=== PATIENT | male | born 1945 | race Caucasian/White ===

== ENCOUNTER 2024-03-19 08:28 | Outpatient (AMB) | payer MEDICARE, SELFPAY ==
--- NOTE | 2024-03-19 08:39 | A.OFFVIS_ITS ---
Vital Signs 03/19/24 08:40 Height 5 ft 5 in Weight 150 lb 8 oz BMI 25.0 BP 134/72 Blood Pressure Location Lt brachial Position Sitting Pulse 63 Pulse Source Pulse Oximeter Pulse Oximetry (%) 97 Oxygen Delivery Method Room Air Intake Visit Reasons: OA /cortizone injection Intake Note: Patient presents for cortisone injection in right hand. Allergies No Known Allergies Allergy (Verified 03/19/24 08:41) HPI HPI OA /cortizone injection: Details: He received cortisone injection for right carpal tunnel syndrome from Dr. Curran [facility] months ago with benefit. Been experiencing burning pain at night that wakes him up from sleep. It is affecting his right 1st to 3rd fingers. He is also experiencing left CMC pain. Hard to hold objects. [facility] Surgical History H/O vasectomy H/O knee surgery Review of Systems Const All systems reviewed & are unremarkable except as noted in HPI and below Physical Exam Vital Signs: Last Vital Signs Pulse 63 03/19/24 08:40 BP 134/72 03/19/24 08:40 Pulse Ox 97 03/19/24 08:40 Oxygen Delivery Method Room Air 03/19/24 08:40 BMI result Body Mass Index 25.0 Const Other: General: Comfortable Skin: Bruising on hands MSK: Heberden nodes present with subluxation of right 2nd DIPJ. He is able to internal grinder hand. Squaring of bilateral CMCs with pain on palpation. No synovitis. Office Procedures AMB Joint Injection/Aspiration Joint Injection/Aspiration Details: Left CMC joint Prep: site was prepped using aseptic technique Injected: 10 mg of, Kenalog, with 0.25 mL of and 1% plain lidocaine Procedure: The patient tolerated the procedure well. Postprocedure protocol was discussed with patient. Coding - Small Joint Procedure code (CPT) selection complete AMB Joint Injection/Aspiration Joint Injection/Aspiration Details: Right carpal tunnel Prep: site was prepped using aseptic technique Injected: 20 mg of, Kenalog, with 0.5 mL of and 1% plain lidocaine Procedure: The patient tolerated the procedure well. Postprocedure protocol was discussed with patient. Coding Additional procedure code (CPT) needed (CPT 14479) Office Meds lidocaine (PF) 10 mg/mL (1 %) injection solution Performing Provider: Jacobo Carrion MD Performing Location: [facility] [place] [facility] Administered by: Jacobo Carrion MD on 03/19/24 09:12 Dose Route Admin Location Dispensed Lot Number Expiration Date [facility] Hr Recruiter 2.5 mg Infiltration 2 mL [id number] [employer] Kenalog 40 mg/mL suspension for injection Performing Provider: Jacobo Carrion MD Performing Location: [facility] [place] [facility] Administered by: Jacobo Carrion MD on 03/19/24 09:12 Dose Route Admin Location Dispensed Lot Number Expiration Date [facility] Hr Recruiter 10 mg intra-articular 1 mL AP [id number] [employer] lidocaine (PF) 10 mg/mL (1 %) injection solution Performing Provider: Jacobo Carrion MD Performing Location: [facility] [place] [facility] Administered by: Jacobo Carrion MD on 03/19/24 09:14 Dose Route Admin Location Dispensed Lot Number Expiration Date [facility] Hr Recruiter 5 mg Infiltration 2 mL [id number] [employer] Kenalog 40 mg/mL suspension for injection Performing Provider: Jacobo Carrion MD Performing Location: [facility] [place] [facility] Administered by: Jacobo Carrion MD on 03/19/24 09:14 Dose Route Admin Location Dispensed Lot Number Expiration Date [facility] Hr Recruiter 20 mg Tendon Sheath Inj. 1 mL AP [id number] [employer] Assessment & Plan Assessment & Plan (1) Osteoarthritis, hand: Comment: Pain from left CMC osteoarthritis is greater than right. He has had worsening subluxation of right 2nd DIPJ but at this time pain is controlled. Code(s): M19.049 - Primary osteoarthritis, unspecified hand Category: Medical Qualifiers: Osteoarthritis type: primary Laterality: bilateral Qualified Code(s): M19.041 - Primary osteoarthritis, right hand; M19.042 - Primary osteoarthritis, left hand Plan: Patient received cortisone injection to left CMC. Return to clinic in 3 months or sooner if needed for left DIPJ/right CMC cortisone injection He is being prescribed diclofenac p.o. from pain management. I recommend that PCP checked creatinine and LFTs at least twice a year for drug monitoring on chronic NSAID. (2) Carpal tunnel syndrome, right: Comment: Recurrent. Code(s): G56.01 - Carpal tunnel syndrome, right upper limb Category: Medical Plan: Patient received cortisone injection to right carpal tunnel this visit Return to clinic in 3 months (3) Osteoarthritis of carpometacarpal joint of left thumb: Code(s): M18.12 - Unilateral primary osteoarthritis of first carpometacarpal joint, left hand Category: Medical Qualifiers: Osteoarthritis type: primary Qualified Code(s): M18.12 - Unilateral primary osteoarthritis of first carpometacarpal joint, left hand Plan: See above Orders: Orders OT Evaluation and Treatment Today G56.01 - Carpal tunnel syndrome, right upper limb, M19.049 - Primary osteoarthritis, unspecified hand AMB Joint Injection/Aspiration Today M18.12 - Unilateral primary osteoarthritis of first carpometacarpal joint, left hand AMB Joint Injection/Aspiration Today G56.01 - Carpal tunnel syndrome, right upper limb Medications: New Kenalog (triamcinolone acetonide) 20 mg (0.5 mL) Tendon Sheath Inj. ONCE 0.5 mL 0RF NS G56.01 - Carpal tunnel syndrome, right upper limb lidocaine (PF) 5 mg (0.5 mL) Infiltration ONCE 0.5 mL 0RF G56.01 - Carpal tunnel syndrome, right upper limb Coding Level of Care Code Est Pt Level 4 (17398) Complex EM visit Add On G2211 Diagnoses Primary osteoarthritis of both hands M19.041; M19.042 Osteoarthritis type: primary Laterality: bilateral Carpal tunnel syndrome, right G56.01 Primary osteoarthritis of first carpometacarpal joint of left hand M18.12 Osteoarthritis type: primary CPT Codes Coding - - Small joint: 92351 - Small Joint ([id number])
[2024-03-19 08:40] VITALS: BP 134/72; PULSE 63; O2SAT 97; BMI 25.0
== END 2024-03-19 09:10 | disposition home or self-care (01) ==
PROVIDERS: PCP Family Medicine; Visit Provider Internal Medicine Rheumatology
DX: M19.041 Primary osteoarthritis, right hand (principal); M19.042 Primary osteoarthritis, left hand; G56.01 Carpal tunnel syndrome, right upper limb; M18.12 Unilateral primary osteoarthritis of first carpometacarpal joint, left hand
CPT/HCPCS: 20526; 20600; 99213

== ENCOUNTER → 2024-03-19 08:28 | Outpatient (BNVA) | payer MEDICARE, SELFPAY | PROVIDERS: PCP Family Medicine; Visit Provider Internal Medicine Rheumatology | DX: G56.01 Carpal tunnel syndrome, right upper limb (principal); M18.12 Unilateral primary osteoarthritis of first carpometacarpal joint, left hand; M19.041 Primary osteoarthritis, right hand; M19.042 Primary osteoarthritis, left hand | CPT/HCPCS: 20526; 20600; 99212; J2003; J3300 ==

== ENCOUNTER 2024-08-13 10:09 | Outpatient (AMB) | payer MEDICARE, SELFPAY ==
--- NOTE | 2024-08-13 10:12 | MHC.OFFVIS ---
Vital Signs 08/13/24 10:20 Height 5 ft 5 in Weight 152 lb 6 oz BMI 25.4 BP 120/70 Blood Pressure Location Lt brachial Position Sitting Pulse 70 Pulse Source Pulse Oximeter Pulse Oximetry (%) 96 Oxygen Delivery Method Room Air Intake Visit Reasons: Follow up 3mo Intake Note: Patient presents for 3 months follow up. Allergies No Known Allergies Allergy (Verified 08/13/24 10:20) HPI HPI Follow up 3mo: Details: He continues to experience pain in bilateral wrists and right 2nd finger. [facility] Surgical History H/O vasectomy H/O knee surgery Physical Exam Vital Signs: Last Vital Signs Pulse 70 08/13/24 10:20 BP 120/70 08/13/24 10:20 Pulse Ox 96 08/13/24 10:20 Oxygen Delivery Method Room Air 08/13/24 10:20 BMI result Body Mass Index 25.4 Const Other: General: Comfortable Skin: Bruising on hands MSK: Heberden nodes present with subluxation of right 2nd DIPJ. Tender right 2nd PIP. 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 Squaring of bilateral CMCs with pain on palpation. No synovitis. Office Procedures AMB Joint Injection/Aspiration Joint Injection/Aspiration Details: Bilateral CMC joint Prep: site was prepped using aseptic technique Injected into each site: 10 mg of, Kenalog, with 0.25 mL of and 1% plain lidocaine Procedure: Informed verbal consent was obtained. The patient tolerated the procedure well. Postprocedure protocol was discussed with patient. Procedure: The patient tolerated the procedure well Coding - Small Joint Procedure code (CPT) selection complete AMB Joint Injection/Aspiration Coding - Small Joint Procedure code (CPT) selection complete AMB Joint Injection/Aspiration Joint Injection/Aspiration Details: Right 2nd DIPJ Prep: site was prepped using aseptic technique Injected: 10 mg of, Kenalog, with 0.25 mL of and 1% plain lidocaine Procedure: Informed verbal consent was obtained. The patient tolerated the procedure well. Postprocedure protocol was discussed with patient. Coding - Small Joint Procedure code (CPT) selection complete Office Meds lidocaine (PF) 10 mg/mL (1 %) injection solution Performing Provider: Jacobo Carrion MD Per[place] [facility] [place] [facility] Administered by: Jossue Coto RN on 08/13/24 10:30 Dose Route Admin Location Dispensed Lot Number Expiration Date NDC Rate Analyst 2.5 mg Infiltration 2 mL [id number] 07/25/26 17340-852-64 [employer] Total Dispensed Waste 2 mL 87.5 % Kenalog 40 mg/mL suspension for injection Performing Provider: Jacobo Carrion MD Performing Location: [facility] [place] [facility] Administered by: Jossue Coto RN on 08/13/24 10:30 Dose Route Admin Location Dispensed Lot Number Expiration Date NDC Rate Analyst 10 mg intra-articular 1 mL [id number] 09/24/26 85120-458-66 [employer] Total Dispensed Waste 1 mL 75 % lidocaine (PF) 10 mg/mL (1 %) injection solution Performing Provider: Jacobo Carrion MD Performing Location: [facility] [place] [facility] Administered by: Jossue Coto RN on 08/13/24 10:30 Dose Route Admin Location Dispensed Lot Number Expiration Date NDC Rate Analyst 2.5 mg Infiltration 2 mL [id number] 07/25/26 13781-062-92 [employer] Total Dispensed Waste 2 mL 87.5 % Kenalog 40 mg/mL suspension for injection Performing Provider: Jacobo Carrion MD Performing Location: [facility] [place] [facility] Administered by: Jossue Coto RN on 08/13/24 10:30 Dose Route Admin Location Dispensed Lot Number Expiration Date NDC Rate Analyst 10 mg intra-articular 1 mL [id number] 09/24/26 49408-091-89 [employer] Total Dispensed Waste 1 mL 75 % lidocaine (PF) 10 mg/mL (1 %) injection solution Performing Provider: Jacobo Carrion MD Performing Location: [facility] [place] [facility] Administered by: Jossue Coto RN on 08/13/24 10:30 Dose Route Admin Location Dispensed Lot Number Expiration Date NDC Rate Analyst 2.5 mg Infiltration 2 mL [id number] 07/25/26 33003-240-81 [employer] Total Dispensed Waste 2 mL 87.5 % Kenalog 40 mg/mL suspension for injection Performing Provider: Jacobo Carrion MD Performing Location: [facility] [place] [facility] Administered by: Jossue Coto RN on 08/13/24 10:30 Dose Route Admin Location Dispensed Lot Number Expiration Date [facility] Rate Analyst 10 mg intra-articular 1 mL [id number] 77651-442-45 [facility] Total Dispensed Waste 1 mL 75 % Assessment & Plan Assessment & Plan (1) Osteoarthritis, hand: Comment: Bilateral CMC and right 2nd DIPJ pain is uncontrolled. Code(s): M19.049 - Primary osteoarthritis, unspecified hand Category: Medical Qualifiers: Laterality: bilateral Osteoarthritis type: primary Qualified Code(s): M19.041 - Primary osteoarthritis, right hand; M19.042 - Primary osteoarthritis, left hand Plan: Patient received cortisone injection to bilateral CMCs and right 2nd DIPJ Return to clinic in 3 months (2) Carpal tunnel syndrome, right: Comment: Recurrent. Controlled at this time. Code(s): G56.01 - Carpal tunnel syndrome, right upper limb Category: Medical Plan: Return to clinic in 3 months (3) Osteoarthritis of carpometacarpal joint of left thumb: Code(s): M18.12 - Unilateral primary osteoarthritis of first carpometacarpal joint, left hand Category: Medical Qualifiers: Osteoarthritis type: primary Qualified Code(s): M18.12 - Unilateral primary osteoarthritis of first carpometacarpal joint, left hand Plan: See above Orders: Orders AMB Joint Injection/Aspiration Today M19.041 - Primary osteoarthritis, right hand, M19.042 - Primary osteoarthritis, left hand AMB Joint Injection/Aspiration Today M19.041 - Primary osteoarthritis, right hand, M19.042 - Primary osteoarthritis, left hand AMB Joint Injection/Aspiration Today M19.041 - Primary osteoarthritis, right hand, M19.042 - Primary osteoarthritis, left hand Coding Level of Care Code Est Pt Level 3 (99935) Complex EM visit Add On G2211 Diagnoses Primary osteoarthritis of both hands M19.041; M19.042 Laterality: bilateral Osteoarthritis type: primary Carpal tunnel syndrome, right G56.01 Primary osteoarthritis of first carpometacarpal joint of left hand M18.12 Osteoarthritis type: primary CPT Codes Coding - 09820 - Small joint: 61548 - Small Joint ([id number]) Coding - 11081 - Small joint: 51062 - Small Joint ([id number]) Coding - 90778 - Small joint: 53301 - Small Joint ([id number])
[2024-08-13 10:20] VITALS: BP 120/70; PULSE 70; O2SAT 96; BMI 25.4
== END 2024-08-13 10:41 | disposition home or self-care (01) ==
PROVIDERS: PCP Family Medicine; Visit Provider Internal Medicine Rheumatology
DX: M19.041 Primary osteoarthritis, right hand (principal); M19.042 Primary osteoarthritis, left hand; G56.01 Carpal tunnel syndrome, right upper limb; M18.0 Bilateral primary osteoarthritis of first carpometacarpal joints
CPT/HCPCS: 20600; 99213

== ENCOUNTER → 2024-08-13 10:09 | Outpatient (BNVA) | payer MEDICARE, SELFPAY | PROVIDERS: PCP Family Medicine; Visit Provider Internal Medicine Rheumatology | DX: M19.042 Primary osteoarthritis, left hand (principal); M18.12 Unilateral primary osteoarthritis of first carpometacarpal joint, left hand; G56.01 Carpal tunnel syndrome, right upper limb | CPT/HCPCS: 20600; 99212; J2003; J3300 ==

== ENCOUNTER 2024-11-18 12:33 | Outpatient (AMB) | payer MEDICARE, SELFPAY ==
--- NOTE | 2024-11-18 12:37 | MHC.OFFVIS ---
Vital Signs 11/18/24 12:38 Height 5 ft 5 in Weight 154 lb 15.759 oz BMI 25.8 BP 100/80 Blood Pressure Location Lt brachial Pulse 59 Pulse Source Pulse Oximeter Pulse Oximetry (%) 97 Oxygen Delivery Method Room Air Intake Visit Reasons: 3 months Intake Note: Patient presents for cortisone injection in right hand. Accompanied by: Self / Same As Patient Allergies No Known Allergies Allergy (Verified 11/18/24 12:39) HPI HPI 3 months: Details: R 3 fingers are numb. Pain is shooting up wrist. Initially starts with numbness then becomes painful. A month ago pain started. Using brace at night and diclofenac gel. He is experiencing right CMC pain. [facility] Surgical History H/O vasectomy H/O knee surgery Physical Exam Vital Signs: Last Vital Signs Pulse 59 11/18/24 12:38 BP 100/80 11/18/24 12:38 Pulse Ox 97 11/18/24 12:38 Oxygen Delivery Method Room Air 11/18/24 12:38 BMI result Body Mass Index 25.8 Const Other: General: Comfortable Skin: Bruising on hands MSK: Heberden nodes present with subluxation of right 2nd DIPJ. Tender right CMC. 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 Squaring of bilateral CMCs with pain on palpation. No synovitis. Office Procedures AMB Joint Injection/Aspiration Joint Injection/Aspiration Details: Right CMC Prep: site was prepped using aseptic technique Injected: 10 mg of, Kenalog, with 0.25 mL of and 1% plain lidocaine Procedure: Informed verbal consent was obtained. The patient tolerated the procedure well. Postprocedure protocol was discussed with patient. Coding - Small Joint Procedure code (CPT) selection complete AMB Joint Injection/Aspiration Joint Injection/Aspiration Details: Right carpal tunnel Prep: site was prepped using aseptic technique Injected: 20 mg of, Kenalog, with 0.5 mL of and 1% plain lidocaine Procedure: Informed verbal consent was obtained. The patient tolerated the procedure well. Postprocedure protocol was discussed with patient. Coding Additional procedure code (CPT) needed (CPT code 50041 carpal tunnel) Office Meds lidocaine (PF) 10 mg/mL (1 %) injection solution Performing Provider: Jacobo Carrion MD Performing Location: [facility] [place] [facility] Administered by: Jossue Coto RN on 11/18/24 13:11 Dose Route Admin Location Dispensed Lot Number Expiration Date NDC Chainstitch Tunnel Elastic Operator 0.25 mL Infiltration 2 mL [id number] 05/25/26 71979-322-06 [employer] Total Dispensed Waste 2 mL 87.5 % Kenalog 40 mg/mL suspension for injection Performing Provider: Jacobo Carrion MD Performing Location: [facility] [place] [facility] Administered by: Jossue Coto RN on 11/18/24 13:11 Dose Route Admin Location Dispensed Lot Number Expiration Date ND Chainstitch Tunnel Elastic Operator 10 mg intra-articular 1 mL [id number] 06/24/25 [address]-3 [employer] Total Dispensed Waste 1 mL 75 % lidocaine (PF) 10 mg/mL (1 %) injection solution Performing Provider: Jacobo Carrion MD Performing Location: [facility] [place] [facility] Administered by: Jossue Coto RN on 11/18/24 13:11 Dose Route Admin Location Dispensed Lot Number Expiration Date NDC Chainstitch Tunnel Elastic Operator 0.5 mL Infiltration 2 mL [id number] 05/25/26 01053-970-30 [employer] Total Dispensed Waste 2 mL 75 % Kenalog 40 mg/mL suspension for injection Performing Provider: Jacobo Carrion MD Performing Location: [facility] [place] [facility] Administered by: Jossue Coto RN on 11/18/24 13:11 Dose Route Admin Location Dispensed Lot Number Expiration Date ND Chainstitch Tunnel Elastic Operator 40 mg intra-articular 1 mL [id number] 06/24/25 [address]-9 [employer] Total Dispensed Waste 1 mL 0 % Assessment & Plan Assessment & Plan (1) Carpal tunnel syndrome, right: Comment: Recurrent. Pain is uncontrolled. He had evaluation for surgery at the [facility] but prefers to defer surgery at this time due to him requiring left shoulder and back surgery when he is able. Code(s): G56.01 - Carpal tunnel syndrome, right upper limb Category: Medical Plan: Patient received cortisone injection to treat carpal tunnel syndrome Wear wrist brace at night Return to clinic in 3 months (2) Osteoarthritis, hand: Comment: R CMC pain is uncontrolled Code(s): M19.049 - Primary osteoarthritis, unspecified hand Category: Medical Qualifiers: Laterality: bilateral Osteoarthritis type: primary Qualified Code(s): M19.041 - Primary osteoarthritis, right hand; M19.042 - Primary osteoarthritis, left hand Plan: Patient received right CMC cortisone injection Return to clinic in 3 months Orders: Orders AMB Joint Injection/Aspiration Today M19.041 - Primary osteoarthritis, right hand, M19.042 - Primary osteoarthritis, left hand AMB Joint Injection/Aspiration Today M18.12 - Unilateral primary osteoarthritis of first carpometacarpal joint, left hand Coding Level of Care Code Est Pt Level 3 (45165) Complex EM visit Add On G2211 Diagnoses Carpal tunnel syndrome, right G56.01 Primary osteoarthritis of both hands M19.041; M19.042 Laterality: bilateral Osteoarthritis type: primary CPT Codes Coding - - Small joint: - Small Joint ([id number])
[2024-11-18 12:38] VITALS: BP 100/80; PULSE 59; O2SAT 97; BMI 25.8
--- OUTSIDE RECORDS SUMMARY | 2024-11-18 15:06 | XMS_ITS | Encounter Summary ---
Author Organization [facility] Address [address] [place] [address] Phone Care Team Providers Care Stamp Analyst Name Role Phone Melita Michael MD Primary Care Provider [phone] Encounter Details Date Type Department Care Team (Late Contact Info) Description 06/02/2021 Procedure Pass OR Admitting Dept - Virtual Department [address] [place] [address] Social History Tobacco Use Types Packs/Day Years Used Date Smoking Tobacco: Former Smokeless Tobacco: Never Comments:quit 40 years ago Alcohol Use Standard Drinks/Week Comments No 0 (1 standard drink = 0.6 oz pur e alcohol) Sex and Gender Information Value Date Recorded Sex Assigned at Male 06/18/2024 12:28 PM EDT Legal Sex Male 10:08 PM EDT Gender Identity Male 06/18/2024 12:28 PM EDT Sexual Orientation Not on file documented as of this encounter Plan of Treatment Upcoming Encounters Date Type Department Care Team (Late Contact Info) Description 11/25/2024 2:30 PM EDT Office Visit [facility], All[facility] Critical Care Medicine [address] [facility] [place] [address] Lowell Webb MD [address] [place] [phone] 12/08/2024 4:15 PM EDT Appointment [facility] [address] [place] [address] Lowell Webb MD [address] [place] [phone] 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 It is not the complete legal health record.[facility]
--- OUTSIDE RECORDS SUMMARY | 2024-11-18 15:06 | XMS_ITS | Encounter Summary ---
Author Organization [facility] Address [address] [place] [phone] Phone Care Team Providers Care Railroad Accountant Name Role Phone Melita Michael MD Primary Care Provider [phone] Encounter Details Date Type Department Care Team (Late st Contact Info) Description 02/08/2023 Procedure Pass [facility], Ct Scan - [address] [place] [address] [address] Social History Tobacco Use Types Packs/Day Years Used Date Smoking Tobacco: Former Cigarettes Q uit: 1973 Smokeless Tobacco: Never Comments:quit 40 years ago Alcohol Use Standard Drinks/Week Comments No 0 (1 standard drink = 0.6 oz pur e alcohol) Education Answer Date Recorded Are you interested in more education? Not on wali e 06/22/2022 Are you concerned about learning? Not on file 06/22/2022 No 06/22/2022 No 06/22/2022 Digital Access Answer Date Recorded No 07/21/2022 No 07/21/2022 Reliable internet access at home? Not on file 07/21/2022 Device with a working camera? Not on file Intimate Partner Violence Answer Date R ecorded Are you denied basic needs s uch as food, clothing, or medical care? No 05/08/2022 In the past 12 months have y ou been in a relationship with a person who hurts, threatens, or tries to control you? No 05/08/2022 Are you denied basic needs s uch as food, clothing, or medical care? No 05/08/2022 In the past 12 months have y ou been in a relationship with a person who hurts, threatens, or tries to control you? No 05/08/2022 Sex and Gender Information Value Date Recorded Sex Assigned at Male 06/18/2024 12:28 PM EDT Legal Sex Male 10:08 PM EDT Gender Identity Male 06/18/2024 12:28 PM EDT Sexual Orientation Not on file documented as of this encounter Plan of Treatment Upcoming Encounters Date Type Department Care Team (Late st Contact Info) Description 11/25/2024 2:30 PM EDT Office Visit [facility], Allergy and Critical Care Medicine [address] [place] [address] Lowell Webb MD [address] [place] [phone] 12/08/2024 4:15 PM EDT Appointment [facility] [address] [place] [address] Lowell Webb MD [address] [place] [phone] documented as of this encounter Visit Diagnoses Not on filedocumented in this encounter Care Teams Railroad Accountant Relationship Specialty Start Date End Date Melita Michael MD [address] [place] [address] [place] [phone] PCP - General Family Medicine 01/28/22 documented as of this encounter Additional Source Comments The information contained in this document represents components of the legal health record. It is not the complete legal health record.[facility]
--- OUTSIDE RECORDS SUMMARY | 2024-11-18 15:06 | XMS_ITS | Encounter Summary ---
Author Organization [facility] Address [address] [place] [address] [place] [address] Phone Care Team Providers Care Sales Broker Name Role Phone Melita Michael MD Primary Care Provider [phone] Encounter Details Date Type Department Care Team ([facility] Contact Info) Description 01/16/2022 Transcribe Orders Virtual Department [address] [place] [address] Melita Michael MD [address] [place] [address] [email or web address] Other form of dyspnea Social History Tobacco Use Types Packs/Day Years [...] Upcoming Encounters Date Type Department Care Team ([facility] Contact Info) Description 11/25/2024 2:30 PM EDT Office Visit [facility] Pulmonary, Allergy and Critical Care Medicine 10 [place] [address] Lowell Webb MD 10 [facility] 2nd [place] [address] 12/08/2024 4:15 PM EDT Appointment [facility] 30 [place] [address] Lowell Webb MD [address] [place] [address] [email or web address] documented as of this encounter Visit Diagnoses Diagnosis Other form of dyspnea documented in this encounter Additional Health Concerns Infection Onset Date 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 It is not the complete legal health record.[facility]
--- OUTSIDE RECORDS SUMMARY | 2024-11-18 15:06 | XMS_ITS | Encounter Summary ---
Author Organization [facility] Address [address] [place] [address] Phone Care Team Providers Care Toll Settlement Clerk Name Role Phone Melita Michael MD Primary Care Provider [phone] Reason for Referral * MRI/CAT Scan - Closed Specialty Diagnoses / Procedures Referred By Teddy cervantes Referred To Contact Radiology Diagnoses Dyspnea, unspecified type Procedures CT Chest Melita Michael MD Phone: tel: fax: [email or web address] Referral ID Status Reason Start Date Expiration Date Visits Re quested Visits Authorized [id number] Closed 02/01/2022 02/01/2023 1 1 Encounter Details Date Type Department Care Team (Late st Contact Info) Description 02/01/2022 Transcribe Orders Virtual Department 30 [place] [address] Melita Michael MD [address] [place] [address] [email or web address] Dyspnea, unspecified type (Primary Dx) Social History Tobacco Use Types Packs/Day Years [...] Pulmonary, Allergy and Critical Care Medicine 10 [place] [address] Lowell Webb MD [address] [place] [address] 12/08/2024 4:15 PM EDT Appointment [facility] 30 [place] [address] Lowell Webb MD [address] [place] [phone] documented as of this encounter Results * CT CHEST (HIGH RESOLUTION) WITHOUT CONTRAST (02/15/2022 11:48 AM EST) Anatomical Region Laterality Modality Chest Computed Tomogra phy 02/15/2022 1:13 PM EST Impressions 02/15/2022 1:19 PM EST -Mild basal/predominant subpleural reticulation with early traction bronchiectasis and no honeycombing. 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 -Mild splenomegaly. Narrative 02/15/2022 1:[address] CHEST (HIGH RESOLUTION) WITHOUT CONTRAST TECHNIQUE: Multidetector CT of the chest was performed without intravenous contrast using tailored dose modulation techniques. Thin inspiratory, expiratory and inspiratory prone images were obtained as part of a high-resolution chest CT protocol. COMPARISON: None FINDINGS: Devices/Tubes/Lines: None. Lungs: Central airways are patent. Mild scattered subpleural reticulation with slight basal predominance. There is early traction bronchiectasis in both lower lobes. No honeycombing. There is evidence of air-trapping in the inferior left lower lobe, though this is not seen to a significant degree elsewhere, suggesting that the overall pattern is not related to a small-airway process. No suspicious pulmonary nodule. Pleura: Normal. No pleural effusion or pneumothorax. Mediastinum: Normal. No thyroid nodules. Heart and pericardium are normal. Lymph Nodes: Normal. No enlarged supraclavicular, axillary, mediastinal, or hilar lymph nodes. Upper Abdomen: Partially imaged upper abdomen demonstrates benign hepatic cysts and mild splenomegaly. Chest Wall: Normal. No chest wall mass. Bones: Mild degenerative changes. No suspicious lytic or blastic lesions. Procedure Note Fernando Beverly MD - 02/15/2022 CT CHEST (HIGH RESOLUTION) WITHOUT CONTRAST TECHNIQUE: Multidetector CT of the chest was performed without intravenouscontrast using tailored dose modulation techniques. Thin inspiratory,expiratory and inspiratory prone images were obtained as [facility]. COMPARISON: None FINDINGS: Devices/Tubes/Lines: None. Lungs: Central airways are patent. Mild scattered subpleural reticulationwith slight basal predominance. There is early traction bronchiectasis inboth lower lobes. No honeycombing. There is evidence of air-trapping inthe inferior left lower lobe, though this is not seen to a significantdegree elsewhere, suggesting that the overall pattern is not related to asmall-airway process. No suspicious pulmonary nodule. Pleura: Normal. No pleural effusion or pneumothorax. Mediastinum: Normal. No thyroid nodules. Heart and pericardium arenormal. Lymph Nodes: Normal. No enlarged supraclavicular, axillary, mediastinal,or hilar lymph nodes. Upper Abdomen: Partially imaged upper abdomen demonstrates benign hepaticcysts and mild splenomegaly. Chest Wall: Normal. No chest wall mass. Bones: Mild degenerative changes. No suspicious lytic or blasticlesions. IMPRESSION: -Mild basal/predominant subpleural reticulation with early tractionbronchiectasis and no honeycombing. Findings likely represent earlyinterstitial lung disease, in a likely UIP pattern. -Mild splenomegaly. 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 It is not the complete legal health record.[facility]
--- OUTSIDE RECORDS SUMMARY | 2024-11-18 15:06 | XMS_ITS | Encounter Summary ---
Author Organization [facility] Address [address] [place] [address] Phone Care Team Providers Care Paralegal Supervisor Name Role Phone Melita Michael MD Primary Care Provider [phone] Encounter Details Date Type Department Care Team (Late st Contact Info) Description 08/06/2023 Procedure Pass [facility], Ct Scan - [address] [address] Social History Tobacco Use Types Packs/Day Years [...] Pulmonary, Allergy and Critical Care Medicine 10 [place] [address] Lowell Webb MD [address] [place] [address] 12/08/2024 4:15 PM EDT Appointment [facility] 30 [place] [address] Lowell Webb MD [address] [place] [address] documented as of this encounter Visit Diagnoses Not on filedocumented in this encounter Care Teams Paralegal Supervisor Relationship Specialty Start Date End Date Melita Michael MD [address] [place] [address] [place] [address] PCP - General Family Medicine 01/28/22 documented as of this encounter Additional Source Comments The information contained in this document represents components of the legal health record. It is not the complete legal health record.[facility]
--- OUTSIDE RECORDS SUMMARY | 2024-11-18 15:07 | XMS_ITS | Encounter Summary ---
Author Organization [facility] Address [address] [place] [address] Phone Care Team Providers Care Cement Breaker Name Role Phone Melita Michael MD Primary Care Provider [phone] Encounter Details Date Type Department Care Team (Late st Contact Info) Description 06/27/2022 Procedure Pass [facility] [place] [place] [address] Social History Tobacco Use Types Packs/Day Years [...] on file 06/22/2022 No 06/22/2022 No 06/22/2022 Intimate Partner Violence Answer Date R ecorded [...] Pulmonary, Allergy and Critical Care Medicine 10 [place] [address] Lowell Webb MD [address] [place] [phone] [email or web address] 12/08/2024 4:15 PM EDT Appointment [facility] 30 [place] [address] Lowell Webb MD [address] [place] [address] [email or web address] documented as of this encounter Visit Diagnoses Not on filedocumented in this encounter Care Teams Cement Breaker Relationship Specialty Start Date End Date Melita Michael MD [address] [place] [address] [place] [address] PCP - General Family Medicine 01/28/22 documented as of this encounter Additional Source Comments The information contained in this document represents components of the legal health record. It is not the complete legal health record.[facility]
--- OUTSIDE RECORDS SUMMARY | 2024-11-18 15:07 | XMS_ITS | Encounter Summary ---
Author Organization [facility] Address [address] [facility] [address] [place] [address] Phone Care Team Providers Care Probation Worker Name Role Phone Melita Michael MD Primary Care Provider [phone] Encounter Details Date Type Department Care Team (Late st Contact Info) Description 07/22/2024 Procedure Pass [facility], Ct Scan - [address] [address] Social History Tobacco Use Types Packs/Day Years [...] on file 06/22/2022 No 06/22/2022 No 06/22/2022 Food Answer Date Recorded Within the past 6 months we worried whether our food would run out before we got money to buy more. Never True 06/18/2024 Within the past 6 months the food we bought just didn't last and we didn't have enough money to get more. Never True Residential Stability Answer Date Recor ded What is your housing situation today? I have marty sing 06/18/2024 How many times have you move d in the past 12 months? Zero (I did not move) 06/18/2024 Paying for Meds Answer Date Recorded Do you have trouble paying for medicines? No 06/18/2024 Paying Utility Bills Answer Date Record ed Do you have trouble paying your heating or elect ricity bill? No 06/18/2024 Transportation Answer Date Recorded Has the lack of transportati on kept you from medical appointments or from getting medications? No 06/18/2024 Digital Access Answer Date Recorded No 06/18/2024 Yes 06/18/2024 Do you have reliable internet access at home? Ye s 06/18/2024 Do you have a device (e.g., phone, tablet, computer) with a working camera? Yes 06/18/2024 Intimate Partner Violence Answer Date R ecorded Are you denied basic needs s uch as food, clothing, or medical care? No 06/18/2024 In the past 12 months have y ou been in a relationship with a person who hurts, threatens, or tries to control you? No 06/18/2024 Are you denied basic needs s uch as food, clothing, or medical care? No 06/18/2024 In the past 12 months have y ou been in a relationship with a person who hurts, threatens, or tries to control you? No 06/18/2024 Sex and Gender Information Value Date Recorded [...] [facility] Pul[facility], All[facility] Medicine [address] [place] [address] Lowell Webb MD [address] [place] [address] 12/08/2024 4:15 PM EDT Appointment [facility] 30 [place] [address] Lowell Webb MD [address] [place] [address] documented as of this encounter Visit Diagnoses Not on filedocumented in this encounter Care Teams Probation Worker Relationship Specialty Start Date End Date Melita Michael MD [address] [place] [address] [place] [phone] PCP - General Family Medicine 01/28/22 documented as of this encounter Additional Source Comments The information contained in this document represents components of the legal health record. It is not the complete legal health record.[facility]
--- OUTSIDE RECORDS SUMMARY | 2024-11-18 15:07 | XMS_ITS | Encounter Summary ---
Author Organization [facility] Address [address] [place] [address] [place] [address] Phone Care Team Providers Care Head Paper Tester Name Role Phone Gualberto Red MD Unavailable [phone] Francesca Carney MD Unavailable [phone] Melita Michael MD Primary Care Provider [phone] Encounter Details Date Type Department Care Team (Late Contact Info) Description 06/25/2017 Procedure Pass [place] Admitting Dept - Virtual Department 30 [place] [address] Social History Tobacco Use Types Packs/Day Years Used Date Smoking Tobacco: Former Smokeless Tobacco: Never Alcohol Use Standard Drinks/Week Comments No 0 [...] Pulmonary, Allergy and Critical Care Medicine 10 [place] [address] Lowell Webb MD [address] [place] [address] 12/08/2024 4:15 PM EDT Appointment [facility] 30 [place] [address] Lowell Webb MD [address] [place] [phone] [email or web address] documented as of this encounter Visit Diagnoses Not on filedocumented in this encounter Additional Health Concerns Infection Onset Date Last 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 [place], [place] [phone] [email or web address] LMR Provider 12/13/16 03/04/21 documented as of this encounter Additional Source Comments The information contained in this document represents components of the legal health record. It is not the complete legal health record.[facility]
--- OUTSIDE RECORDS SUMMARY | 2024-11-18 15:07 | XMS_ITS | Encounter Summary ---
Author Organization [facility] Address [address] [place] [address] [place] [address] Phone Care Team Providers Care Wire Hanger Name Role Phone Melita Michael MD Primary Care Provider [phone] Encounter Details Date Type Department Care Team (Late Contact Info) Description 02/01/2022 Procedure Pass , Ct Scan - [facility] 30 [place] [address] Social History Tobacco Use Types Packs/Day Years [...] Pulmonary, Allergy and Critical Care Medicine 10 [place] [address] Lowell Webb MD [address] [place] [address] 12/08/2024 4:15 PM EDT Appointment [facility] [address] [place] [address] Lowell Webb MD [address] [place] [address] [email or web address] documented as of this encounter Visit Diagnoses Not on filedocumented in this encounter Additional Health Concerns Infection Onset Date Last Indicated 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 It is not the complete legal health record.[facility]
--- OUTSIDE RECORDS SUMMARY | 2024-11-18 15:07 | XMS_ITS | Clinical Summary ---
Author Organization [facility] Address [address] [place] [address] Phone Care Team Providers Care Scrap Kettle Tender Name Role Phone Melita Michael MD Primary Care Provider [phone] Allergies No known active allergies Medications tiZANidine (ZANAFLEX) 4 MG tablet Take 4 mg by mouth every 8 (eight) hours as needed (spasm). Using as needed Active oxyCODONE HCl 10 mg Tab Take 10 mg by mouth 3 (three) times a day as needed (pain). Active traZODone (DESYREL) 50 MG tablet Take 150 mg by mouth nightly. Active sertraline (ZOLOFT) 50 MG tablet Take 50 mg by mouth daily. Active SILDENAFIL CITRATE (VIAGRA ORAL) Take by mouth as needed. Active pregabalin (LYRICA) 75 MG capsule Take 75 mg by mouth 2 (two) times a day. Active albuterol 90 mcg/actuation inhaler Inhale 2 puffs into the lungs every 6 (six) hours as needed for wheezing. 8 g 01/29/20 22 Active diclofenac sodium (VOLTAREN) 1 % Gel APPLY 2G TO AFFECTED AREA EVERY 4 TO 6 HOURS NEEDED 01/13/20 22 Active capsaicin (CAPZASIN-HP) 0.1 % Crea Apply topically 3 (three) times a day. 42.5 g 06/19/19 25 Active Additional Information Patient not taking.Reported on 07/22/2024 celecoxib (CELEBREX) 100 MG capsule Take 1 capsule (100 mg total) by mouth 2 (two) times a day for 7 days. 14 capsule 06/19/19 25 Active albuterol 2.5 mg /3 mL (0.083 %) nebulizer solutionIndication s:Traction bronchiectasis Take 3 mL (2.5 mg total) by nebulization every 6 (six) hours as needed for shortness of breath/dyspnea or wheezing. 180 mL 11 07/23/19 25 Active Active Problems Problem Noted Date Diagnosed Date Arthritis 07/22/2024 Assessment & Plan (07/22/2024 11:07 AM EDT): Given active symptoms, question whether has inflammatory arthritis in addition to degenerative arthritis. Will recheck additional inflammatory markers and serologies. Pending results, will determine if needs additional follow-up testing or consultations. 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 Start with aggressive pulmonary hygiene regimen including twice daily Hypersal and sodium chloride 7%. Coupon provided. Assessment & Plan (05/16/2022 11:48 AM EDT): Mild radiographic bronchiectasis with excess secretions noted on bronchoscopy. Latter finding may have been residual from patient's prior URI, though suspect some element is chronic. Recommend start gentle pulmonary hygiene regimen with daily morning Aerobika flutter device for 5 to 10 minutes. Can increase to twice daily if notes worsening cough. If symptoms progress, low threshold to institute hypertonic saline treatments. ILD (interstitial lung disease) 04/02/2022 Assessment & Plan (07/22/2024 11:07 AM EDT): Mild interstitial lung disease on CT that remained stable Unclear pathology but suspect early UIP. History of brother who had pulmonary fibrosis suspicious for familial IPF. Given worsening arthritis symptoms, will reevaluate serologies with additional checking of CCP antibody and myositis 3 panel. Given increase symptoms despite stable testing back in February, we will repeat in 3 months. At follow-up, we will discuss potential role of genetic testing for possible short telomere syndrome. Assessment & Plan (08/06/2023 2:21 PM EDT): Interstitial abnormalities on chest CT with preserved PFTs and family history for of IPF concerning for familial pulmonary fibrosis. Currently remains clinically stable. Personal review of his recent chest CT demonstrated stable findings. We are awaiting the official report from radiology. He will reschedule his pulmonary function studies as well. Assuming they are stable we will plan a repeat series of testing in 6 months. That will be 2 years of ongoing close monitoring. And can discuss if everything stable at that point whether to transition to annual monitoring. If there is evidence however of disease progression, would have low threshold to begin antifibrotic therapy. He is aware and in agreement. 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 Question of possible familial disease as well though fortunately he is older than his brother who at age 74 of IPF. Given his preserved PFTs and stable CT, I believe we can continue to monitor closely. Would continue with repeat testing every 6 months. He will contact me if he develops any new or changing respiratory symptoms. In the future, we discussed possible testing for familial disease though he is not particular interested at this time. Assessment & Plan (05/16/2022 11:47 AM EDT): Mild interstitial lung disease on chest CT in the UIP pattern, with preserved lung function on PFTs. Given imaging and family history, high likelihood of idiopathic pulmonary fibrosis. Fortunately, the patient remains minimally symptomatic and has preserved lung function obviating clear indication for treatment at this time. I did state however that we would watch closely and with any worsening symptoms or decrement in lung function or imaging, would have low threshold to start antifibrotic therapy. The mildly elevated lymphocytes on 1 BAL specimen, and mildly increased soluble IL-2 receptor level of unclear significance. No clear underlying autoimmune process at play. No clear indication to start steroids at this time but certainly a short trial could be considered if symptoms warranted. PLAN to repeat PFTs and noncontrast chest CT in 6 months. Patient is aware to contact the office if develops any worsening dyspnea or cough, he has would have low threshold for earlier reevaluation if needed. Assessment & Plan (04/02/2022 1:43 PM EST): Chest CT findings consistent with mild interstitial lung disease, possible early UIP pattern. Given family history of IPF, highly concerning this represents indeed early idiopathic pulmonary fibrosis. Exam relatively clear and CT findings are rather minimal, raises question whether this accounts for his dyspnea. Nonetheless, we will pursue further work-up. Obtain serologic evaluation for secondary causes of interstitial lung disease, including serologies and inflammatory markers Obtain full pulmonary function studies for 6-minute distance walk Schedule for bronchoscopy Pending results of above, if otherwise negative, and given family history and CT findings, low threshold to initiate antifibrotic therapy. Other chest pain 01/31/2022 Assessment & Plan (01/31/2022 11:04 AM EST): He did have chest pain in the past and he did go to the emergency room he did rule out for GA we are planning for a myocardial perfusion imaging stress test and he has an echo pending through his PCP Dyspnea 01/31/2022 Assessment & Plan (02/08/2023 2:34 PM EST): Atypical dyspnea of unclear etiology. His echo was preserved and he is able to ambulate long distances. The fact that he is out of breath bending over suggest more discomfort from diaphragmatic pressure that it does respiratory compromise particularly given his preserved PFTs. Will continue to monitor closely. Assessment & Plan (05/16/2022 11:48 AM EDT): Symptoms have improved. Letter provided for structured exercise program in his local [facility]. Assessment & Plan (04/02/2022 1:41 PM EST): Chronic slightly progressive dyspnea, with episodes both at rest as well as with exertion. Negative cardiac work-up. Pulmonary evaluation thus far demonstrating early mild interstitial lung disease. Whether this accounts for the patient's dyspnea is unclear. We will continue further pulmonary work-up. Assessment & Plan (01/31/2022 11:04 AM EST): 66-year-old gentleman, user of marijuana vapes, developed shortness of breath for last 2 years. He does not have any evidence of volume overload suggesting he is in heart failure. He has been to the emergency room where nothing was found for acute coronary syndrome. He has not seen any animal control supervisor and did not have any PFTs so far We will do a stress test make sure this shortness of breath is not angina equivalent which it does not look like. 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 He is not on any statin. He asked me how he can prevent another heart attack and I told him if he keeps his cholesterol very low that might help so we will go ahead and order a lipid profile and and BMP Encounters Date Type Department Care Team Description 10/28/2024 Transcribe Orders [facility] [address] [place] [id number] Lowell Webb MD 09/25/2024 2:01 PM EDT - 09/25/2024 11:59 PM EDT Hospital Encounter [facility], [address] [address] Lowell Webb MD Discharge Disposition: Home or Self Care 07/22/2024 Procedure Pass [facility], [address] [address] from Last 3 Months Family History Medical History Relation Comments Interstitial Lung Disease Brother Lung cancer Father Relation Status Comments Brother Father Social History Tobacco Use Types Packs/Day Years Used Date Smoking Tobacco: Former Cigarettes Q uit: 1973 Smokeless Tobacco: Never Tobacco Cessation:Counseling Given: Not Answered Comments:quit 40 years ago Alcohol Use Standard [...] PM EDT Sexual Orientation Not on file Last Filed Vital Signs Vital Sign Reading Time Taken Comments Blood Pressure 120/70 07/22/2024 9:30 AM EDT Pulse 62 07/22/2024 9:30 AM EDT Temperature 36.4 C (97.6 F) 07/22/2024 9:30 AM EDT Respiratory Rate 16 06/18/2024 3:42 PM EDT Oxygen Saturation 97% 07/22/2024 9:30 AM EDT Inhaled Oxygen Concentration - - Weight 69.4 kg (153 lb) 07/22/2024 9:30 AM EDT Height 165.1 cm (5' 5 ) 07/22/2024 9:30 AM EDT Body Mass Index 25.46 07/22/2024 9:30 AM EDT Plan of Treatment Upcoming Encounters Date Type Department Care Team (Late st Contact Info) Description 11/25/2024 2:30 PM EDT Office Visit [facility] All[facility] Critical Care Medicine [address] [place] [address] Lowell Webb MD [address] [place] [phone] [email or web address] 12/08/2024 4:15 PM EDT Appointment [facility] [address] [place] [address] Lowell Webb MD [address] [place] [address] Health Maintenance Due Date Last Done Comments LIPID PANEL 1944 DEPRESSION SCREENING 1956 HEPATITIS C SCREENING 1962 RSV VACCINE (1 - 1-dose 75+ series) 12/03/2019 ZOSTER VACCINES (3 of 3) 06/28/2024 05/03/2024, 07/0 03/2012 INFLUENZA VACCINE (#1) 2024 2, 02/03/2021, 2019, Additional history exists COVID-19 VACCINE ( season) 2024 06/08/2024, 11/15/2022, 12/16/2021, Additional history exists SMOKING Hx and SMOKELESS TOBACCO SCREENING 07/22/2025 07/22/2024 Adult Td,Tdap Booster 01/17/2032 01/16/2022 , 01/27/2014, 09/15/2003 PNEUMOCOCCAL VACCINES (50+ years) Completed 05/03/2024, 03/25/2015, 04/06/2013 HEPATITIS A VACCINES Aged Out No long er eligible based on patient's age to complete this topic HIB VACCINES Aged Out No longer eligi ble based on patient's age to complete this topic MENINGOCOCCAL VACCINES (ACWY) Aged Out No longer eligible based on patient's age to complete this topic MENINGOCOCCAL VACCINES (B) Aged Out N o longer eligible based on patient's age to complete this topic Medical Devices Implanted Type Area Oven Attendant Device Identifier Shelf Expiration Date Model / Serial / Lot Prosthetic Joint Prosthetic Joint Bilatera l: Knee Procedures Procedure Name Priority Date/Time Associated Diagnosis Comments CT CHEST (HIGH RESOLUTION) WITHOUT CONTRAST Routine 09/25/2024 2:13 PM EDT ILD (interstitial lung disease) from Last 3 Months Results * CT CHEST (HIGH RESOLUTION) WITHOUT CONTRAST (09/25/2024 2:13 PM EDT) Anatomical Region Laterality Modality Chest Computed Tomogra phy 09/28/2024 10:2 3 PM EDT Impressions 09/28/2024 10:31 PM EDT * Resolution of LEFT apical mucous plugging since February 2024. * Unchanged subpleural reticulations involving the anterior upper lobes as well as the lung bases and bibasilar cylindrical bronchiectasis since at least July 2023. * No suspicious pulmonary nodules or thoracic lymphadenopathy. * No CT evidence of pulmonary hypertension. Narrative 09/28/2024 10:[address] CHEST (HIGH RESOLUTION) WITHOUT CONTRAST Referring clinician's provided indication for this examination in Epic: * Interstitial lung disease TECHNIQUE: Multidetector CT of the chest was performed without intravenous contrast using tailored dose modulation techniques. Thin inspiratory, expiratory and inspiratory prone images were obtained as part of a high-resolution chest CT protocol. COMPARISON: CT CHEST (HIGH RESOLUTION) WITHOUT CONTRAST ; CT CHEST (HIGH RESOLUTION) WITHOUT CONTRAST FINDINGS: Devices/Tubes/Lines: None. Lungs: Stable bibasilar cylindrical bronchiectasis. The central airways remain clear. Prone imaging shows posterior reticulation at the lung bases which also involves the upper lobes anteriorly on both sides. No honeycombing or ground glass opacity. Expiratory imaging shows no significant air trapping. No new or enlarging pulmonary nodules or consolidation. Pleura: No pleural effusion or pneumothorax. Mediastinum: Unremarkable thyroid gland. Mild coronary artery calcification. No cardiomegaly or pericardial effusion. The pulmonary artery measures 2.2 cm at the bifurcation compared to 3.7 cm for the ascending aorta at this level. Lymph Nodes: No enlarged supraclavicular, axillary, mediastinal, or hilar lymph nodes. Upper Abdomen: No abnormality detected in the visualized upper abdomen. Absence of intravenous contrast limits sensitivity of this examination. Chest Wall: No chest wall mass. Bones: There are degenerative changes. No suspicious lytic or blastic lesions. Procedure Note Trey Yen MD - 09/28/2024 CT CHEST (HIGH RESOLUTION) WITHOUT CONTRAST Referring clinician's provided indication for this examination in [facility]: *Interstitial lung disease TECHNIQUE: Multidetector CT of the chest was performed without intravenouscontrast using tailored dose modulation techniques. Thin inspiratory,expiratory and inspiratory prone images were obtained as part of [facility]-resolution chest CT protocol. COMPARISON: CT CHEST (HIGH RESOLUTION) WITHOUT CONTRAST ; CTCHEST (HIGH RESOLUTION) WITHOUT CONTRAST FINDINGS: Devices/Tubes/Lines: None. Lungs: Stable bibasilar cylindrical bronchiectasis. The central airwaysremain clear. Prone imaging shows posterior reticulation at the lung baseswhich also involves the upper lobes anteriorly on both sides. Nohoneycombing or ground glass opacity. Expiratory imaging shows nosignificant air trapping. No new or enlarging pulmonary nodules orconsolidation. Pleura: No pleural effusion or pneumothorax. Mediastinum: Unremarkable thyroid gland. Mild coronary arterycalcification. No cardiomegaly or pericardial effusion. The pulmonaryartery measures 2.2 cm at the bifurcation compared to 3.7 cm for theascending aorta at this level. Lymph Nodes: No enlarged supraclavicular, axillary, mediastinal, or hilarlymph nodes. Upper Abdomen: No abnormality detected in the visualized upper abdomen.Absence of intravenous contrast limits sensitivity of this examination. Chest Wall: No chest wall mass. Bones: There are degenerative changes. No suspicious lytic or blasticlesions. IMPRESSION: * Resolution of LEFT apical mucous plugging since February 2024. * Unchanged subpleural reticulations involving the anterior upper lobesas well as the lung bases and bibasilar cylindrical bronchiectasis sinceat least July 2023. * No suspicious pulmonary nodules or thoracic lymphadenopathy. * No CT evidence of pulmonary hypertension. Lowell Webb MD IM CT CHEST Final Result from Last 3 Months Insurance MEDICARE PART A & B [facility] MEDICARE SUPPLEMENT MEDICARE PART A & B MEDICARE SUPPLEMENT MEDICARE PART A & B [facility] MEDICARE SUPPLEMENT MEDICARE PART A & B [facility] MEDICARE SUPPLEMENT MEDICARE PART A & B [facility] MEDICARE SUPPLEMENT MEDICARE PART A & B MEDICARE SUPPLEMENT MEDICARE PART A & B [facility] MEDICARE SUPPLEMENT MEDICARE PART A & B [facility] MEDICARE SUPPLEMENT MEDICARE PART A & B [facility] MEDICARE SUPPLEMENT Care Teams Scrap Kettle Tender Relationship Specialty Start Date End Date Melita Michael MD [address] [place] [phone] PCP - General Family Medicine 01/28/22 Additional Source Comments The information contained in this document represents components of the legal health record. It is not the complete legal health record.[facility]
--- OUTSIDE RECORDS SUMMARY | 2024-11-18 15:07 | XMS_ITS | Encounter Summary ---
Author Organization [facility] Address [address] [place] [address] Phone Care Team Providers Care Rd Manager Name Role Phone Gualberto Red MD Unavailable [phone] Francesca Carney MD Unavailable [phone] Melita Michael MD Primary Care Provider [phone] Reason for Referral * Physical Therapy (Within 2 weeks) - Closed Specialty Diagnoses / Procedures Referred By Teddy cervantes Referred To Contact Physical Therapy Diagnoses Encounter for rehabilitation System, Provider Not In, [facility] [id number] [place] [address] Phone: tel: Referral ID Status Reason Start Date Expiration Date Visits Re quested Visits Authorized [id number] Closed 07/24/2017 07/24/2018 90 90 Encounter Details Date Type Department Care Team (Latest Contact Info) Description 07/24/2017 Transcribe Orders [facility] [address] [place] [address] Elida Dhaliwal PA [address] [place] [phone] Encounter for rehabilitation (Primary Dx) Social History Tobacco Use Types [...] [facility] [address] [place] [address] Lowell Webb MD [address] [place] [phone] [email or web address] 12/08/2024 4:15 PM EDT Appointment [facility] PFT Lab [address] [place] [address] Lowell Webb MD [address] [place] [phone] [email or web address] Scheduled Referrals Name Type Priority Associated Diagnoses Orde r Schedule Ambulatory referral to [facility] Physical Therapy Outpatient Referral Routine Encounter for rehabilitation Ordered: 07/24/2017 documented as of this encounter Visit Diagnoses Diagnosis Encounter for rehabilitation- Primary documented in this encounter Additional Health Concerns 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 [address] [email or web address] Historical LMR Provider 12/13/16 03/04/21 documented as of this encounter Additional Source Comments The information contained in this document represents components of the legal health record. It is not the complete legal health record.[facility]
--- OUTSIDE RECORDS SUMMARY | 2024-11-18 15:07 | XMS_ITS | Encounter Summary ---
Author Organization [facility] Address [address] [place] [address] Phone Care Team Providers Care Fisher Quahog Name Role Phone Melita Michael MD Primary Care Provider [phone] Encounter Details Date Type Department Care Team (Late Contact Info) Description 05/08/2022 Procedure Pass [facility] Endoscopy Admitting Dept Virtual Department [address] [place] [address] Social History Tobacco Use Types Packs/Day Years Used Date Smoking Tobacco: Former Cigarettes Q uit: 1973 Smokeless Tobacco: Never Comments:quit 40 years ago Alcohol Use Standard Drinks/Week Comments No 0 (1 standard drink = 0.6 oz pur e alcohol) Intimate Partner Violence Answer Date R ecorded [...] Pulmonary, Allergy and Critical Care Medicine [address] [place] [address] Lowell Webb MD [address] [place] [address] 12/08/2024 4:15 PM EDT Appointment [facility] [address] [place] [address] Lowell Webb MD [address] [place] [phone] [email or web address] documented as of this encounter Visit Diagnoses Not on filedocumented in this encounter Additional Health Concerns 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 It is not the complete legal health record.[facility]
--- OUTSIDE RECORDS SUMMARY | 2024-11-18 15:07 | XMS_ITS | Encounter Summary ---
Author Organization [facility] Address [address] [place] [address] Phone Care Team Providers Care Mimeograph Operator Name Role Phone Melita Michael MD Primary Care Provider [phone] Encounter Details Date Type Department Care Team (Late Contact Info) Description 05/16/2022 Procedure Pass [facility], Ct Scan - [address] [address] Social History Tobacco Use Types Packs/Day Years [...] [facility] [address] [place] [address] Lowell Webb MD [address] [place] [phone] [email or web address] 12/08/2024 4:15 PM EDT Appointment [facility] [address] [place] [address] Lowell Webb MD [address] [place] [phone] [email or web address] documented as of this encounter Visit Diagnoses Not on filedocumented in this encounter Care Teams Mimeograph Operator Relationship Specialty Start Date End Date Melita Michael MD [address] [place] [address] [place] [phone] PCP - General Family Medicine 01/28/22 documented as of this encounter Additional Source Comments The information contained in this document represents components of the legal health record. It is not the complete legal health record.[facility]
== END 2024-11-18 13:32 | disposition home or self-care (01) ==
LOC: HO.RHES 12:34
PROVIDERS: PCP Family Medicine; Visit Provider Internal Medicine Rheumatology
DX: G56.01 Carpal tunnel syndrome, right upper limb (principal); M19.041 Primary osteoarthritis, right hand; M19.042 Primary osteoarthritis, left hand; M18.11 Unilateral primary osteoarthritis of first carpometacarpal joint, right hand
CPT/HCPCS: 20526; 20600; 99213

== ENCOUNTER → 2024-11-18 12:33 | Outpatient (BNVA) | payer MEDICARE, SELFPAY | PROVIDERS: PCP Family Medicine; Visit Provider Internal Medicine Rheumatology | DX: G56.01 Carpal tunnel syndrome, right upper limb (principal); M19.041 Primary osteoarthritis, right hand; M19.042 Primary osteoarthritis, left hand | CPT/HCPCS: 20526; 20600; 99212; J2003; J3301 ==